=== PATIENT | male | born 2000 | race African-American/Black ===

== ENCOUNTER 2023-03-20 08:43 | Emergency (ER) | payer BC, MEDICAID, OTHER | END 2023-03-20 09:58 | disposition home or self-care (01) | LOC: MADERS 08:43 | DX: M54.50 Low back pain, unspecified (principal); I10 Essential (primary) hypertension; E66.01 Morbid (severe) obesity due to excess calories; Z79.899 Other long term (current) drug therapy | CPT/HCPCS: 99283 ==

== ENCOUNTER 2024-09-19 02:58 | Emergency (ER) | payer BC ==
[2024-09-19] MEDS ORDERED: Ibuprofen 800 MG TAB ONE (03:10)
[2024-09-19] MEDS ORDERED: Acetaminophen 500 MG TAB ONE (03:11)
[2024-09-19] MEDS ORDERED: Sodium Chloride 0.9% 2,000 ML ONE (03:25)
[2024-09-19 04:08] LABS: Band 7 % (5-11); Eosinophils 1 % (0-10); Hematocrit 48.5 % (42.0-52.0); Hemoglobin 15.5 g/dL (14.0-18.0); Lymphocytes 20 % (21-51); MDiff Complete? YES; Mean Corpuscular HGB CONC 31.9 g/dL (32.0-36.0); Mean Corpuscular Hemoglobin 29.6 pg (27.0-31.0); Mean Corpuscular Volume 92.6 fl (78.0-98.0); Mean Platelet Volume 10.5 fL (7.4-10.4); Monocytes 17 % (0-10); Neutrophil 55 % (42-75); Platelet Count 200 10x3/uL (130-400); RBC Distribution Width 12.4 % (11.5-14.5); Red Blood Cell (RBC) Count 5.23 mill/uL (4.70-6.10); White Blood Cell (WBC) Count 5.9 10x3/uL (4.8-10.8)
[2024-09-19 04:11] LABS: ALT (SGPT) 26 U/L (Less than 45); AST (SGOT) 19 U/L (11-34); Albumin 3.9 g/dL (3.1-4.5); Alkaline Phosphatase 54 U/L (40-110); Anion Gap 17 mmol/L (10-20); BUN (Urea Nitrogen) 9 mg/dL (8.9-20.6); Bilirubin, Total 0.2 mg/dL (0.3-1.2); Calc. Creatinine Clearance 0 mL/min (70-130); Carbon Dioxide 21 mmol/L (22-29); Chloride 102 mmol/L (98-107); Estimated GFR 81; Globulin 4.2 g/dL (2.4-3.5); Glucose 114 mg/dL (70-105); Protein, Total 8.1 g/dL (6.0-8.3); Sodium 136 mmol/L (136-145)
[2024-09-19 04:12] LABS: Troponin I Less than 0.010 ng/mL (< 0.028)
== END 2024-09-19 06:45 | disposition home or self-care (01) ==
LOC: MADERS 02:58
DX: J10.1 Influenza due to other identified influenza virus with other respiratory manifestations (principal); I10 Essential (primary) hypertension
CPT/HCPCS: 71046; 80053; 83605; 83880; 84484; 85025; 87081; 87428; 87430; J7030